=== PATIENT | female | born 1960 | race Caucasian/White ===

== ENCOUNTER 2021-11-14 09:37 | Outpatient (REF) | payer MEDICARE, OTHER, SELFPAY ==
--- NOTE | 2021-11-14 11:12 | MHC.AU.ANO ---
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 Since then, she has had hearing difficulty in the left ear. Lately, she has been noticing hearing difficulty developing in the right ear as well. She experiences increased hearing difficulty in the car and when there is background noise. She finds herself watching people's lips to follow along in conversation. Patient also reports history of allergies and ear pain. Her physician has observed middle ear fluid in the past, but no recent ear infections. 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 History: No Medical History: Medical History: Headache, High Blood Pressure, Migraines, Allergies, Gastric Bypass Surgery, Hysterectomy Medication List: Fluoxetine, Omeprazole, Lisinopril, Proair HFR (as needed), Multivitamin Otoscopy: Right Ear: Small fluid bubbles behind tympanic membrane Left Ear: Unremarkable Tympanometry: Tympanometry performed due to: To assess integrity of the middle ear system Right Ear: Reduced Middle Ear Compliance (Type As) Left Ear: Reduced Middle Ear Compliance (Type As) Hearing Evaluation: Transducer(s) Used: Insert Earphones Method: Conventional Audiometry Stimuli Used: Pure Tones Right Ear: Description of Hearing: Normal hearing from 250-3000 Hz, sloping to moderate sensorineural hearing loss by 8000 Hz Left Ear: Description of Hearing: Normal hearing from 250-3000 Hz, sloping to moderate/moderately-severe sensorineural hearing loss by 8000 Hz Speech Recognition Threshold (SRT): Method Used: Recorded Lists Stimuli Used: Spondee Words Right Ear: 15 dBHL Left Ear: 15 dBHL Word Discrimination: Method: Recorded Lists Word Lists Used: W-22 Right Ear: 100% at 65 dBHL Left Ear: 100% at 70 dBHL Most Comfortable Level (MCL): Right Ear: 65 dBHL Left Ear: 70 dBHL Interpretation of Results: Patient has normal low-mid frequency hearing, and a moderate high frequency sensorineural hearing loss. People with this degree of hearing loss can usually still hear well in quiet settings when one-on-one or in small groups. If multiple people are talking or background noise is present, increased hearing difficulty can be expected. In those situations, patients may find themselves saying I heard you, but I couldn't make out what you said. Sounds that are more difficult to hear include /th/, /s/, /f/, /k/, and /p/. Recommendations: Audiological re-evaluation in one year. At this time, hearing aids may not yet be warranted, as 250-3000 Hz is still falling within normal range and word discrimination is excellent. If patient was interested in trying amplification, she may benefit from an OTC hearing aid trial, such as the [employer]. Small fluid bubbles were noted behind the right tympanic membrane today. Patient reports frequent ear pain and seasonal allergies. A referral to either Ear, Nose, and Throat or an Fire Regulator may be warranted to discuss those concerns. Her hearing may fluctuate depending on the level of congestion in the middle ear. Diagnosis: Primary Diagnosis: H90.3 Bilateral Sensorineural Hearing Loss Signature: Provider: Maurice Montgomery, [email or web address]
== END 2021-11-14 09:38 | disposition home or self-care (01) ==
LOC: HO.SH 09:37
PROVIDERS: PCP Family Medicine; Visit Provider Nurse Practitioner Primary Care
DX: Z01.118 Encounter for examination of ears and hearing with other abnormal findings (principal); H90.3 Sensorineural hearing loss, bilateral
CPT/HCPCS: 92557; 92567